=== PATIENT | female | born 1980 | race Caucasian/White ===

== ENCOUNTER 2016-08-16 13:30 | Observation (INO) | payer MEDICAID ==
[~2016-08-16] VITALS: Ht 157.5 cm; Wt 85.7 kg
[2016-08-16] MEDS ORDERED: PREN-88 PO (14:07)
== END 2016-08-16 14:50 | disposition home or self-care (01) ==
LOC: L&D 13:30
PROVIDERS: ADMIT Obstetrics & Gynecology; ATTEND Obstetrics & Gynecology
DX: Z34.83 Encounter for supervision of other normal pregnancy, third trimester (principal); Z3A.34 34 weeks gestation of pregnancy
CPT/HCPCS: 76815; 76818; 99281; G0378

== ENCOUNTER 2021-05-10 21:02 | Emergency (ER) | payer MEDICAID ==
[~2021-05-10] VITALS: Ht 167.6 cm; Wt 82.0 kg
[~2021-05-10 21:02] MED LIST: PREN-88 PO
[2021-05-10] MEDS ORDERED: ONDANSETRON 4MG ODT PO ONE (23:15)
[2021-05-10] MEDS ORDERED: ACETAMINOPHEN 500MG TABLET PO ONE (23:15)
[2021-05-10] MEDS ORDERED: KETOROLAC 60MG/2ML VIAL IM ONE (23:15)
[2021-05-10 23:37] VITALS: BP 138/72
[2021-05-10 23:45] LABS: CLARITY URINE CLEAR (CLEAR); COLOR URINE YELLOW (YELLOW); KETONES URINE TRACE (NEGATIVE); LEUKOCYTE ESTERASE URINE 1+ (NEGATIVE); NITRITE URINE NEGATIVE (NEGATIVE); OCCULT BLOOD URINE NEGATIVE (NEGATIVE); PH URINE 5.5 (4.5-8.0); PROTEIN URINE NEGATIVE (NEGATIVE); SPECIFIC GRAVITY URINE 1.026 (1.005-1.030)
== END 2021-05-11 00:57 | disposition home or self-care (01) ==
LOC: ER 21:02
DX: R51.9 Headache, unspecified (principal)
CPT/HCPCS: 70450; 81003; 81025; 96372; 99284; J1885; Q0162; Z7610

== ENCOUNTER 2021-10-09 21:11 | Emergency (ER) | payer MEDICAID ==
[~2021-10-09] VITALS: Ht 157.5 cm; Wt 76.8 kg
[2021-10-09 21:30] VITALS: BP 160/96
[2021-10-09 22:04] LABS: BASOPHILS % 0.9 % (0.0-2.0); EOSINOPHILS % 2.1 % (0.0-5.0); HEMOGLOBIN. 12.7 g/dL (12.0-16.0); LYMPHOCYTES % 31.2 % (20.0-50.0); MEAN CORPUSCULAR HEMOGLOBIN 29.3 pg (28.0-32.0); MEAN CORPUSCULAR VOLUME 87.6 fL (81.0-99.0); MEAN PLATELET VOLUME 9.7 fl (7.4-10.4); MONOCYTES % 6.5 % (2.0-8.0); NEUTROPHILS % 59.3 % (40.0-76.0); PLATELET 278 x1000/uL (130-400); RED BLOOD CELL COUNT 4.34 mill/uL (4.2-5.4); RED CELL DISTRIBUTION WIDTH 13.9 % (11.6-14.6)
[2021-10-09 22:07] LABS: HCG SCREEN NEGATIVE
[2021-10-09 22:13] LABS: CHLORIDE 108 mEq/L (98-107)
[2021-10-09 23:04] LABS: CLARITY URINE CLEAR (CLEAR); COLOR URINE YELLOW (YELLOW); KETONES URINE NEGATIVE (NEGATIVE); LEUKOCYTE ESTERASE URINE TRACE (NEGATIVE); NITRITE URINE NEGATIVE (NEGATIVE); OCCULT BLOOD URINE NEGATIVE (NEGATIVE); PROTEIN URINE NEGATIVE (NEGATIVE); SPECIFIC GRAVITY URINE 1.023 (1.005-1.030)
[2021-10-10] MEDS ORDERED: CEPH500T MT ×2 (03:25→17:26)
[2021-10-10] MEDS ORDERED: CEPHALEXIN 250MG CAPSULE PO SCH (03:30)
== END 2021-10-10 03:46 | disposition home or self-care (01) ==
LOC: ER 21:11
DX: N39.0 Urinary tract infection, site not specified (principal); G43.909 Migraine, unspecified, not intractable, without status migrainosus
CPT/HCPCS: 36415; 74176; 80053; 81003; 84703; 85025; 99284